=== PATIENT | male | born 1980 | race Caucasian/White ===

== ENCOUNTER 2020-12-05 09:46 | Emergency (ER) | payer OTHER ==
[~2020-12-05] VITALS: Ht 170.2 cm; Wt 104.3 kg
[~2020-12-05 09:46] MED LIST: AMOXICILLIN875 MG PO; NOHOMEMEDICATIONS; NORCO 5-325 TA1 EACH PO
[2020-12-05 09:53] VITALS: BP 139/75
[2020-12-05] MEDS ORDERED: LISINOPRIL10 MG PO (09:55)
[2020-12-05] MEDS ORDERED: PRILOSEC OTC20 MG PO (09:55)
[2020-12-05 10:26] LABS: ABSOLUTE EOSINOPHILS 0.2 thou/uL (0.0-0.7); ABSOLUTE LYMPHOCYTES 2.1 thou/uL (0.8-5.3); ABSOLUTE MONOCYTES 0.7 thou/uL (0.0-1.2); ABSOLUTE NEUTROPHILS 4.7 thou/uL (1.6-8.1); BASOPHILS 0.6 %; EOSINOPHILS 2.3 %; HEMATOCRIT 45.4 % (42.0-52.0); HEMOGLOBIN 15.4 gm/dL (14.0-18.0); LYMPHOCYTES 27.3 %; MCH 30.4 pg (26.0-34.0); MCV 89.6 fL (80.0-100.0); MONOCYTES 9.5 %; MPV 7.6 fl. (7.2-11.1); NUCLEATED RBCS 0 /100WBC; PLATELET COUNT* 201 thou/uL (150-400); POLYS 60.3 %; RBC 5.07 mil/uL (4.50-6.00); RDW-CV 13.2 % (10.5-14.5); WBC 7.8 thou/uL (4.0-11.0)
[2020-12-05 10:34] LABS: CALCIUM 8.7 mg/dL (8.5-10.1); CREATININE 1.2 mg/dL (0.6-1.3); POTASSIUM 3.8 mmol/L (3.5-5.1)
[2020-12-05] MEDS ORDERED: NAPROSYN500 MG PO (12:02)
[2020-12-05] MEDS ORDERED: PERCOCET 5-3251 EACH PO (12:02)
[2020-12-05 12:29] VITALS: BP 116/53
[2020-12-09] MEDS ORDERED: ASPIRIN EC325 M1 PO (15:17)
[2020-12-09] MEDS ORDERED: HYDROCODON-ACE1 EAC7 PO (15:36)
== END 2020-12-05 12:31 | disposition home or self-care (01) ==
LOC: M.ERS 09:46 → M.TBA-ER 11:35 → M.ERS 12:31
PROVIDERS: Emergency Medicine
DX: S76.112A Strain of left quadriceps muscle, fascia and tendon, initial encounter (principal); Z20.828 Contact with and (suspected) exposure to other viral communicable diseases; W01.0XXA Fall on same level from slipping, tripping and stumbling without subsequent striking against object, initial encounter; Y93.89 Activity, other specified; Y92.89 Other specified places as the place of occurrence of the external cause; Y99.8 Other external cause status

== ENCOUNTER → 2020-12-09 | Day surgery (SDC) | payer OTHER ==
[~2020-12-09] MED LIST changes: +ASPIRIN EC325 M1 PO; +HYDROCODON-ACE1 EAC7 PO; +LISINOPRIL10 MG PO; +NAPROSYN500 MG PO; +PERCOCET 5-3251 EACH PO; +PRILOSEC OTC20 MG PO
--- NOTE | 2020-12-09 12:56 | EKG ---
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
--- NOTE | 2020-12-15 18:09 | OP ---
[address] [address] OPERATIVE REPORT Name: GIOVANNY NAVARRO Room: [facility] M.R.#: [id number] Admission: 12/09/20 Attend Phys: Anant Veras DO Discharge: Date of : 76 Report #: [id number] THIS REPORT FOR: cc: Pavel Schreiber Russell J. DO ~ Anant Veras DO DATE OF SERVICE: 12/09/2020 PREOPERATIVE DIAGNOSIS: Left quadriceps tendon rupture. POSTOPERATIVE DIAGNOSIS: Left quadriceps tendon rupture. PROCEDURE: Quadriceps tendon repair, left. SURGEON Anant Veras DO BILINGUAL CUSTOMER SERVICE SPECIALIST: Ye Viramontes DO ANESTHESIA: General. ANTIBIOTICS: Ancef. INTRAVENOUS FLUIDS: 1000 mL lactated Ringer's. ESTIMATED BLOOD LOSS: 20 mL. COMPLICATIONS: None. SPECIMENS: None. DRAINS: None. CONDITION OF PATIENT: Stable to PACU. IMPLANTS: #5 FiberWire suture. INDICATIONS FOR PROCEDURE: Ruptured quadriceps tendon with loss of extensor mechanism and patellar baja. I went over with the patient plan of surgery, reasoning and risks and complications in detail. was present for that discussion. Risks and complications were acknowledged, accepted and gave consent to proceed. DESCRIPTION OF PROCEDURE: I marked the left lower extremity in the presence of operative team members. Everyone agreed correct. He was taken back to the operative suite, placed on the table supine, well-padded and secured. General [address] [place] [address] OPERATIVE REPORT Name: GIOVANNY NAVARRO Room: [facility]#: [id number] Admission: 12/09/20 Attend Phys: Anant Veras DO Discharge: Date of : 76 Report #: [id number] anesthetic administered. Left lower extremity was sterilely prepped and draped in standard fashion. Timeout was performed indicating correct patient, procedure, site, antibiotics and all team members agreed. Midline incision made. Scalpel through skin, full thickness flaps down medially, identified the complete quadriceps rupture off the superior pole of the patella, a little bit of attachment remaining underneath the knee and medially, but for the most part very large avulsion, patellar tendon intact. No obvious evidence of fracture within the joint. 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 We then drilled 3 tunnels, standard, one middle, one lateral, one medial. They were in appropriate position. Passed tools to help pass suture through two #5 FiberWire and [place] sutured up and down creating 2 middle limbs and one medial and lateral limbs. Those purchases with a [place] suturing up proximally and distally with full thickness. We passed our limbs appropriately through our tunnels with the knee in full extension. Got the tendon secured down against bone and firmly tied our sutures down and cut the excess suture. Excellent repair. We irrigated within the joint, closed the retinacular disruptions, which were present both medially and laterally with #1 Vicryl and oversewed our repair also with #1 Vicryl. Hemostasis maintained irrigated again with normal saline. Subq closed with 2-0 Monocryl buried deep skin with a running 3-0 nylon. Debriefing performed confirming procedure, blood loss and that all counts were correct and final. All team members agreed. Sterile dressings applied. A silver impregnated dressing, soft roll and Lance wrap and then into a knee immobilizer. He was extubated and taken to PACU in stable. POSTOPERATIVE COURSE AND EVALUATION: I spoke with his at length. Addressed questions, she had the satisfaction. I also reviewed the discharge instruction with her and with him in the PACU area as well. She was thankful for my time and efforts. He was resting in PACU with stable vital signs, pain controlled, neurovascularly intact. Compartments are soft and compressible. No signs of DVT. No signs of compartment syndrome, DVT prophylaxis will be with aspirin daily with food as directed as well as mechanical prophylaxis and explained how to accomplish this, can weightbear with the knee in full extension braces remain at all times. No flexion of the knee until instructed otherwise. Call anytime with questions or concerns. We will follow up in 1 week, sooner if need be. COVID protocol followed at all times. <ELECTRONICALLY SIGNED> By: Anant Veras DO 12/15/20 1809 1142 1232Anant Veras DO /nt
== END | disposition home or self-care (01) ==
LOC: M.SUR 06:37
PROVIDERS: ATTEND Orthopaedic Surgery
DX: S76.112A Strain of left quadriceps muscle, fascia and tendon, initial encounter (principal); M25.552 Pain in left hip; E66.09 Other obesity due to excess calories; Z98.890 Other specified postprocedural states; Z79.899 Other long term (current) drug therapy; W01.0XXA Fall on same level from slipping, tripping and stumbling without subsequent striking against object, initial encounter; Y93.89 Activity, other specified; Y92.89 Other specified places as the place of occurrence of the external cause; Y99.8 Other external cause status